=== PATIENT | male | born 1940 | race Caucasian/White ===

== ENCOUNTER 2023-08-10 10:59 | Emergency (ER) | payer MEDICARE, OTHER, SELFPAY ==
[2023-08-10] VITALS (8 sets, daily range): BP systolic 112–139; BP diastolic 66–91
--- NOTE | 2023-08-10 12:41 | ED.GENMED ---
History of Present Illness
<Emily Marlow NP - Last Filed: 08/12/23 10:20>
General
Chief Complaint: Dizziness
Source: patient
Exam Limitations: none
Time Seen by Provider: 08/10/23 12:21
Nursing documentation reviewed up to this point in time: agreed with
Travel History
Have you had any contact with someone who has COVID-19?: No
Do you have any symptoms of coronavirus? Fever > 100 degrees, chills, cough, shortness of breath, sore throat, loss of taste or smell, muscle aches, or headache?: No
History of Present Illness
History of Present Illness:
82-year-old male with history of prostate cancer, cholecystectomy, Mohs procedure presents stating he has had intermittent dizzy spells for the past month. He states 6 weeks ago he went to urgent care and they looked in his ears and suggested
eardrops and then a week later he went back and was told his ears were 'clear.' 5 days later he had room spinning dizziness a few times over that weekend until Sunday when he saw his PCP Jacob Nunn and he was diagnosed with vertigo. He was
referred to ENT
He was referred to the vestibular therapy clinic and had 3 visits the last 1 being 08/01 and he was told he was 'cleared.' But that night he had another spell.He had several more episodes until he saw the ENT doctor on 08/05 and had a hearing test,
he had a second visit with ENT today and was referred to a retina specialist.
Today his PCP ordered bilateral carotid ultrasound as well as a brain MRI and recommended patient come here for evaluation.
Patient stopped his doxazosin 3 weeks ago thinking this might be causing the dizzy spells. This has not helped.
The dizzy spells last anywhere from 10 to 30 minutes. He does list to the side during the spells and feels like he cannot move his legs. He does have nausea during these spells but has not vomited. His episodes can occur when he stands and turns,
when he gets up from sitting or kneeling, and sometimes they occur while sitting doing nothing.
Past History
<Emily Marlow WASHING MACHINE [employer]SEMBLER - Last Filed: 08/12/23 10:20>
Past History
ED Past Medical History: Other (BPH)
ED Past Surgical History: Cholecystectomy
Social History
Tobacco: Non-smoker
Alcohol: None
Personal:
Living: with family
Review of Systems
<mEily Marlow, WASHING MACHINE ASSEMBLER - Last Filed: 08/12/23 10:20>
Review of Systems
Allergies reviewed?: Yes
All Other Systems: ROS reviewed and negative except as documented in HPI and ROS
Constitutional: Denies fever or fatigue
Respiratory: Denies trouble breathing
Cardiac: Denies chest pain, diaphoresis, palpitations or syncope
ABD/GI: Reports nausea (Only during dizzy spells); Denies abdominal pain, vomiting, diarrhea, bloody stools, black stools or anorexia
: Reports frequency (Chronic due to BPH); Denies dysuria, flank pain, incontinence, difficulty voiding or urgency
Musculoskeletal: Reports no symptoms
Skin: Reports no symptoms
Neurological: Reports dizzy (Described in HPI, patient denies feeling dizzy at this time); Denies headache, weakness or numbness
Phy Exam
<Emily Marlow, WASHING MACHINE ASSEMBLER - Last Filed: 08/12/23 10:20>
Physical Exam
Physical Exam:
GENERAL: No acute distress. A&Ox3. Elderly and frail
CONSTITUTIONAL: Afebrile.
EYES: PERRL, conjunctivae normal, no nystagmus
Neck: Supple
ENMT: moist mucus membranes, Pharynx nl
RESPIRATORY: Regular respirations, nonlabored, lungs clear.
CARDIOVASCULAR: Regular rate and rhythm, no murmurs, no rubs.
GI: Soft, nontender, normal BS
MUSCULOSKELETAL: Moves with ease. Well perfused.
SKIN: Warm, dry, pink
PSYCH: Normal mood and affect. Well kept, interactive and appropriate
NEUROLOGIC: Awake, alert and oriented. Speech clear. Cranial nerves II through XII intact. Dwznls-dy-goky intact. No focal neurological deficits
Course
<Emily Marlow, WASHING MACHINE ASSEMBLER - Last Filed: 08/12/23 10:20>
Orders/Labs/Results
Orders:
Orders
08/10/23 13:15
CT Head W/o Iv Contrast Urgent
Comment:
Reason For Exam: dizziness
08/10/23 13:21
Electrocardiogram (*1) Urgent
Reason for Study: Vertigo / Dizzy
EKG- Treatment ONCE
08/10/23 13:22
Complete Blood Count/With Diff Urgent
Comprehensive Metabolic Panel Urgent
TSH Reflex To Free T4 Urgent
08/10/23 13:23
Urinalysis Reflex To Culture Urgent
Date Specimen was Collected: 08/10/23
Time Specimen was Collected: 13:22
08/10/23 15:31
Carotid US [US Cerebrovascular] Urgent
Comment:
Reason For Exam: dizzy spells
08/10/23 15:33
MRI Brain [MR Brain W/o & With Contrast] Urgent
Comment:
Reason For Exam: dizzy spells
Recent pill cam endoscopy?: No
Abnormal Lab Results
08/10/23 08/10/23
13:22 13:23
RBC 4.66 L 10^6/uL
(4.70-6.10)
MCH 32.8 H pg
(27.0-31.0)
RDW 15.7 H %
(11.5-14.5)
MPV 11.0 H fL
(7.4-10.4)
Monocytes % 10.9 H %
(1.7-9.3)
Urine Ketones 1+ A
(Negative)
08/10/23 13:22
08/10/23 13:22
Vital Signs
Initial and Last Documented VS:
Initial Vital Signs
Temp Pulse Resp BP Pulse Ox
98.1 F 76 18 139/86 98
08/10/23 11:02 08/10/23 11:02 08/10/23 11:02 08/10/23 11:02 08/10/23 11:02
Last Documented Vital Signs
Temp Pulse Resp BP Pulse Ox
98.1 F 67 19 122/91 97
08/10/23 11:02 08/10/23 20:00 08/10/23 19:45 08/10/23 20:00 08/10/23 20:00
<Emir Thompson Jr., PA-C - Last Filed: 08/10/23 20:24>
Orders/Labs/Results
Orders:
Orders
08/10/23 13:15
CT Head W/o Iv Contrast Urgent
Comment:
Reason For Exam: dizziness
08/10/23 13:21
Electrocardiogram (*1) Urgent
Reason for Study: Vertigo / Dizzy
EKG- Treatment ONCE
08/10/23 13:22
Complete Blood Count/With Diff Urgent
Comprehensive Metabolic Panel Urgent
TSH Reflex To Free T4 Urgent
08/10/23 13:23
Urinalysis Reflex To Culture Urgent
Date Specimen was Collected: 08/10/23
Time Specimen was Collected: 13:22
08/10/23 15:31
Carotid US [US Cerebrovascular] Urgent
Comment:
Reason For Exam: dizzy spells
08/10/23 15:33
MRI Brain [MR Brain W/o & With Contrast] Urgent
Comment:
Reason For Exam: dizzy spells
Recent pill cam endoscopy?: No
Abnormal Lab Results
08/10/23 08/10/23
13:22 13:23
RBC 4.66 L 10^6/uL
(4.70-6.10)
MCH 32.8 H pg
(27.0-31.0)
RDW 15.7 H %
(11.5-14.5)
MPV 11.0 H fL
(7.4-10.4)
Monocytes % 10.9 H %
(1.7-9.3)
Urine Ketones 1+ A
(Negative)
08/10/23 13:22
08/10/23 13:22
Vital Signs
Initial and Last Documented VS:
Initial Vital Signs
Temp Pulse Resp BP Pulse Ox
98.1 F 76 18 139/86 98
08/10/23 11:02 08/10/23 11:02 08/10/23 11:02 08/10/23 11:02 08/10/23 11:02
Last Documented Vital Signs
Temp Pulse Resp BP Pulse Ox
98.1 F 67 19 122/91 97
08/10/23 11:02 08/10/23 20:00 08/10/23 19:45 08/10/23 20:00 08/10/23 20:00
<Emily Marlow, WASHING MACHINE ASSEMBLER - Last Filed: 08/12/23 10:20>
MDM/Problems Addressed
Differential Diagnosis Includes:
CVA, TIA, BPPV
MDM/Problems Addressed:
82-year-old male with history of prostate cancer, cholecystectomy, Mohs procedure presents stating he has had intermittent dizzy spells for the past month. He states 6 weeks ago he went to urgent care and they looked in his ears and suggested
eardrops and then a week later he went back and was told his ears were 'clear.' 5 days later he had room spinning dizziness a few times over that weekend until Sunday when he saw his PCP Jacob Nunn and he was diagnosed with vertigo. He was
referred to ENT
He was referred to the vestibular therapy clinic and had 3 visits the last 1 being 08/01 and he was told he was 'cleared.' But that night he had another spell.He had several more episodes until he saw the ENT doctor on 08/05 and had a hearing test,
he had a second visit with ENT today and was referred to a retina specialist.
Today his PCP ordered bilateral carotid ultrasound as well as a brain MRI and recommended patient come here for evaluation.
Patient stopped his doxazosin 3 weeks ago thinking this might be causing the dizzy spells. This has not helped.
The dizzy spells last anywhere from 10 to 30 minutes. He does list to the side during the spells and feels like he cannot move his legs. He does have nausea during these spells but has not vomited. His episodes can occur when he stands and turns,
when he gets up from sitting or kneeling, and sometimes they occur while sitting doing nothing.
1:29 PM
CBC with no clinically significant abnormality
CMP normal
TSH normal
UA negative
Spoke with Dr. Gomez and radiology who will be doing the carotid ultrasound
Spoke with Dr. Medel who is ok with MRI of brain today
Pt reamains stable
Case discussed with Ollie ARRIOLA who will assume care from this point
<Emir Thompson Jr., PA-C - Last Filed: 08/10/23 20:24>
MDM/Problems Addressed
MDM/Problems Addressed:
82-year-old male with history of prostate cancer, cholecystectomy, Mohs procedure presents stating he has had intermittent dizzy spells for the past month. He states 6 weeks ago he went to urgent care and they looked in his ears and suggested
eardrops and then a week later he went back and was told his ears were 'clear.' 5 days later he had room spinning dizziness a few times over that weekend until Sunday when he saw his PCP Jacob Nunn and he was diagnosed with vertigo. He was
referred to ENT
He was referred to the vestibular therapy clinic and had 3 visits the last 1 being 08/01 and he was told he was 'cleared.' But that night he had another spell.He had several more episodes until he saw the ENT doctor on 08/05 and had a hearing test,
he had a second visit with ENT today and was referred to a retina specialist.
Today his PCP ordered bilateral carotid ultrasound as well as a brain MRI and recommended patient come here for evaluation.
Patient stopped his doxazosin 3 weeks ago thinking this might be causing the dizzy spells. This has not helped.
The dizzy spells last anywhere from 10 to 30 minutes. He does list to the side during the spells and feels like he cannot move his legs. He does have nausea during these spells but has not vomited. His episodes can occur when he stands and turns,
when he gets up from sitting or kneeling, and sometimes they occur while sitting doing nothing.
1:29 PM
CBC with no clinically significant abnormality
CMP normal
TSH normal
UA negative
Spoke with Dr. Gomez and radiology who will be doing the carotid ultrasound
Spoke with Dr. Medel who is ok with MRI of brain today
Pt reamains stable
Case discussed with Ollie ARRIOLA who will assume care from this point
Patient's MRIs findings and carotid Dopplers were discussed with the patient. Case was discussed with neurology that felt there was no emergent things to do about findings and that patient should be dispositioned based on symptoms. Patient claims
he has not had any symptoms throughout ER stay and appears stable for outpatient management. He was advised to stay safe and to follow-up closely with his ENT doctor. Return precautions given.
<Emir Thompson Jr., PA-C - Last Filed: 08/10/23 20:24>
*Critical Care Note
Total Time (30-74mins, 75-104mins- exclusive of procedures): Not Applicable
ED Attending Note
<Emily Marlow NP - Last Filed: 08/12/23 10:20>
-
Portions of this chart may have been created with voice recognition software.� Occasional wrong word or��sound alike� substitutions may have occurred due to the inherent limitations of voice recognition software.
Discharge Plan
Departure
Patient Disposition: Home (Routine Discharge)
Date of Disposition: 08/10/23
Time of Disposition: 20:20
Patient with high blood pressure during this ER visit?: No
Condition: Good
Covid-19: Not Applicable
Discharge Problem:
Dizziness
Instructions: Dizziness
Prescriptions:
No Action
acetaminophen [Tylenol Extra Strength] 500 mg Tablet
1,000 mg PO QIDPRN PRN (Reason: mild pain)
doxazosin 2 mg Tablet
2 mg PO HS
cholecalciferol (vitamin D3) [Vitamin D3] 25 mcg (1,000 unit) Tablet
25 mcg PO DAILY
PreserVision AREDS 2,148 mcg-113 mg-45 mg-17.4mg Tablet
2 tab PO DAILY
Referrals:
Weston Nunn MD [Family Provider] -
Activity Restrictions/Additional Instructions:
You came to the emergency department today with concerns of dizziness. You had findings on your brain MRI that may explain your symptoms. Please follow closely with ENT for further discussion of this. Please stay safe at home and return for any
worsening, new or concerning symptoms.
Interventions
Interventions:
*ED COVID-19 Vaccine History Last Done: 08/10/23 11:10
*Nursing Disposition Last Done: 08/10/23 20:35
ED- Neurological Assessment Last Done: 08/10/23 13:37
ED- Cardiac Assessment Last Done: 08/10/23 13:37
ED Swallowing Screen Last Done: 08/10/23 13:37
Discharge Date and Time
Discharge Date/Time: 08/10/23 20:36
Print Language: MALTESE
[2023-08-10 13:41] LABS: % Basophils 1.5 % (0-2); % Eosinophils 0.8 % (0-6); % Immature Granulocytes 0.2 % (0-0.5); % Lymphocytes 31.4 % (20.5-51.1); % Monocytes 10.9 % (1.7-9.3); % Neutrophils 55.2 % (42.2-75.2); Absolute Basophils 0.1 10^3/uL (0-0.2); Absolute Lymphocytes 1.5 10^3/uL (1.2-3.4); Absolute Monocytes 0.5 10^3/uL (0.1-0.6); Absolute Neutrophils 2.6 10^3/uL (1.4-6.5); Hematocrit 43.7 % (39.0-52.0); Hemoglobin 15.3 g/dL (13.0-18.0); Mean Corpuscular Hgb 32.8 pg (27.0-31.0); Mean Corpuscular Volume 93.8 fL (80.0-94.0); Nucleated Red Blood Cells % 0 % (-); Platelet Count 166 10^3/uL (130-400); Red Blood Cell Count 4.66 10^6/uL (4.70-6.10); Red Cell Dist. Width 15.7 % (11.5-14.5); White Blood Cell Count 4.8 10^3/uL (4.8-10.8)
[2023-08-10 13:55] LABS: Urine Albumin Negative (Neg - Trace); Urine Bilirubin Negative (Negative); Urine Character Clear (Clear); Urine Color Straw; Urine Glucose Negative (Negative); Urine Ketone 1+ (Negative); Urine Leukocyte Negative (Negative); Urine Nitrite Negative (Negative); Urine Occult Blood Negative (Negative); Urine Specific Gravity 1.015 (<1.030); Urine Urobilinogen Negative (Neg - 1+)
[2023-08-10 13:56] LABS: ALT (SGPT) 23 U/L (0-50); AST (SGOT) 28 U/L (17-59); Albumin 3.7 g/dl (3.5-5.0); Alkaline Phosphatase 65 U/L (38-126); Blood Urea Nitrogen 15 mg/dl (9-20); Calcium 9.3 mg/dl (8.4-10.2); Carbon Dioxide 26 mmol/L (22-30); Chloride 107 mmol/L (98-107); Glucose 84 mg/dl (70-99); Potassium 4.5 mmol/L (3.5-5.1); Sodium 139 mmol/L (135-145); Total Bilirubin 1.1 mg/dl (0.2-1.3); Total Protein 6.3 g/dl (6.3-8.2); eGFR > 60.00
== END 2023-08-10 20:36 | disposition home or self-care (01) ==
LOC: EMR 10:59
PROVIDERS: Registered Nurse; EMERGENCY PHYSICIAN Emergency Medicine; FAMILY PHYSICIAN Internal Medicine
DX: R42 Dizziness and giddiness (principal)
CPT/HCPCS: 99285; 70450; 70553; 80053; 81003; 84443; 85025; 93005; 93880; A9585